=== PATIENT | male | born 1960 | race Caucasian/White ===

== ENCOUNTER 2022-01-24 09:26 | Outpatient (CLI) | payer BC, SELFPAY | END 2022-01-24 09:27 | disposition home or self-care (01) | PROVIDERS: PCP Family Medicine; Visit Provider Internal Medicine Gastroenterology | DX: D50.9 Iron deficiency anemia, unspecified (principal); K31.7 Polyp of stomach and duodenum | CPT/HCPCS: 43239; 45378; 88305; 99153; J2250; J3010 ==

== ENCOUNTER 2025-03-14 07:36 | Outpatient (CLI) | payer OTHER, SELFPAY | END 2025-03-14 07:37 | disposition home or self-care (01) | LOC: INJ CL 07:37 | PROVIDERS: Visit Provider Family Medicine | DX: M54.16 Radiculopathy, lumbar region (principal); M51.369 Other intervertebral disc degeneration, lumbar region without mention of lumbar back pain or lower extremity pain | CPT/HCPCS: 62323; J0702; Q9966 ==